=== PATIENT | female | born 1965 | race Caucasian/White ===

== ENCOUNTER 2021-11-14 16:09 | Outpatient (REF) | payer MEDICARE, SELFPAY ==
--- NOTE | ~2021-11-14 | MR_ITS ---
EXAMINATION: MR LUMBAR SPINE WITHOUT CONTRAST CLINICAL INFORMATION: 56-year-old with lumbar radiculitis, bilateral sciatica. Evaluate for spinal stenosis. COMPARISON: None TECHNIQUE: MRI of the lumbar spine was obtained using routine sequences without contrast. FINDINGS: Coronal Alignment: There is mild lower lumbar levocurvature, mildly convex to the left at L4-L5. Sagittal Alignment: Normal. Lumbosacral Junction: Transitional lumbosacral anatomy with lowest lumbar-like segment labeled as L5 which is partially sacralized with a transitional, rudimentary L5-S1 intervertebral disc. Vertebral Bodies: Normal height. Disc Spaces and Endplates: Intradiscal degenerative signal changes are noted at L4-L5 with minor anterior marginal endplate spurring. There is mild disc desiccation and minor anterior marginal endplate spurring at L3-L4. Spinal Canal: No abnormal developmental findings. Bone Marrow: No suspicious marrow replacing process identified. 1.5 cm lipid rich benign vertebral hemangioma noted in the L3 vertebral body. Minimal marrow edema in the L3 and L4 pedicles bilaterally which may be reactive secondary to facet arthropathy or stress reactions. Conus Medullaris: Terminates at T12. Morphology and signal is normal. Intradural Nerve Roots: Within normal limits. L5-S1: Transitional level. No canal or foraminal stenosis. L4-L5: Broad-based shallow central to left paramedian disc osteophyte complex with annular fissuring noted and a tiny right subarticular disc protrusion. Slight flattening of the dural sac noted on the left. Ligamentum flavum thickening and moderate bilateral facet arthropathy noted without significant canal stenosis. No significant neural foraminal stenosis. L3-L4: Shallow broad-based right paramedian to subarticular disc protrusion with mild flattening of the ventral dural sac on the right with mild ligament of flavum thickening and [id number] bilateral facet arthropathy with a prominent dorsal epidural fat pad and mild central canal stenosis with slight narrowing of the right subarticular zone. There are periarticular inflammatory changes with edema adjacent to the left L3-L4 facet joint with inflammatory subchondral marrow edema on both sides of the facet joint consistent with active inflammatory changes. Minimal periarticular edema and subchondral marrow edema corresponding to the right facet joint as well. No significant neural foraminal stenosis. L2-L3: Minor annular bulging noted with slight flattening of the ventral dural sac. Moderate bilateral facet arthropathy noted without significant canal stenosis or neural foraminal compromise. L1-L2: Normal disc contour. Mild right-sided facet arthropathy. No canal or neuroforaminal stenosis. Paraspinal/Retroperitoneal: The visualized paravertebral and retroperitoneal soft tissue structures appear grossly unremarkable. MR/MR lumbar spine wo con IMPRESSION: 1. Normal spinal alignment, with discogenic degenerative changes at L4-L5 and L3-L4 with L5 being a transitional level. 2. Mild disc protrusions at L4-L5 and L3-L4 as discussed above without neural impingement. Mild central canal stenosis and mild narrowing of the right subarticular zone at L3-L4. 3. Bilateral facet arthropathy at the levels between L2-L3 and L4-L5 inclusive with active inflammatory changes suspected at the L3-L4 facet joints bilaterally. No significant neural foraminal stenosis.
== END 2021-11-14 16:10 | disposition home or self-care (01) ==
LOC: HO.MRI 16:09
PROVIDERS: Visit Provider Psychiatry & Neurology Neurology
DX: M54.16 Radiculopathy, lumbar region (principal)
CPT/HCPCS: 72148

== ENCOUNTER 2022-05-01 15:36 | Outpatient (REF) | payer MEDICARE, SELFPAY ==
[2022-05-01 18:31] LABS: Anion Gap 13 (12-20); Blood Urea Nitrogen 13 mg/dL (9-16); Calcium 10.3 mg/dL (8.4-10.2); Carbon Dioxide 26 mmol/L (22-29); Chloride 105 mmol/L (96-108); Estimated Glomerular Filt Rate > 60; Glucose Random 78 mg/dL (60-115); Sodium 140 mmol/L (135-145)
[2022-05-01 19:02] LABS: Folate 11.6 ng/mL (> or = 4.0); Vitamin B12 432 pg/mL (200-900)
[2022-05-01 20:23] LABS: Erythrocyte Sedimentation Rate 7 MM/HR (0-20)
[2022-05-03 18:53] LABS: Lyme Abs Screen <0.90 index
[2022-05-06 11:13] LABS: IgA 79 mg/dL (47-310); IgG 742 mg/dL (600-1640); IgM 52 mg/dL (50-300)
== END 2022-05-01 15:37 | disposition home or self-care (01) ==
LOC: HO.LAB 15:36
PROVIDERS: PCP Internal Medicine; Visit Provider Psychiatry & Neurology Neurology
DX: G62.9 Polyneuropathy, unspecified (principal)
CPT/HCPCS: 36415; 80048; 82607; 82746; 82784; 85652; 86334; 86617; 86618